=== PATIENT | female | born 1980 | race Caucasian/White ===

== ENCOUNTER 2018-04-30 01:43 | Emergency (ER) | payer OTHER, SELFPAY ==
[2018-04-30 01:44] VITALS: BP 122/81; PULSE 71; RESP 18; TEMP 36.6; O2SAT 100; BMI 27.6
--- NOTE | 2018-04-30 01:45 | ED.RN ---
PER THE COMPUTER, [facility] DOES NOT REQUIRE POST ACCIDENT DRUG TESTING.
--- NOTE | 2018-04-30 01:46 | ED.VISSUMM ---
- ER Visit Summary Date of Service: 04/30/18 Chief Complaint: Right second finger injury History of Present Illness: The patient is a 38 F who is right-hand dominant presents with injury to right second finger. Patient was at work. She was working on a [employer] press. She states that 1 of the pieces came back and struck on the dorsum of the right second finger. She denies other injury. She had pain and swelling. She denies any loss of function. The patient is otherwise healthy. Physical Examination: Exam is relatively unremarkable. There is contusion with superficial abrasion over the PIP dorsum of the right second finger. Flexion extension are preserved. 2 point determination is preserved. No evidence of nail injury. Test Results: [] Emergency Department Course and Treatment: X-rays were obtained of the finger. There is no evidence of acute fracture. I do feel her symptoms are secondary to contusion. Patient was placed in AlumaFoam splint for comfort. She will be allowed to return to work with restrictions on the right hand. She will continue ice, elevation, and anti-inflammatories. She will be discharged. Treatment Plan: [] Disposition: Discharge Impression: Right second finger contusion This note was generated with [employer] dictation software. It may contain incorrect words, spelling, and punctuation that were not noted in review of the chart prior to signing ED Disposition - Plan for ED Patient: Chief Complaint: Upper Extremity Injury Instructions: ED Sprain Finger Referrals: [facility]AH[facility] SWEENEY [GROUP OF PHYSICIANS] -
--- NOTE | 2018-04-30 01:50 | RAD_ITS ---
STUDY: X-RAY - RIGHT HAND REASON FOR EXAM: Female, 38 years old. Smashed hand in machinery. TECHNIQUE: 3 view(s) of the hand. COMPARISON: None. FINDINGS: Normal radiocarpal articulation. Normal distal radioulnar joint. Normal visualized carpal bones. Normal carpal articulations Normal carpometacarpal articulation of the thumb. Normal second through fifth carpometacarpal joints. Normal metacarpi. Normal metacarpophalangeal joint of the thumb. Normal interphalangeal joint of the thumb. Normal proximal and distal phalanges of the thumb. Normal metacarpophalangeal joints of the second through fifth fingers. Normal proximal and distal interphalangeal joints of the second through fifth fingers. Normal phalanges of the second through fifth fingers. The soft tissue structures are unremarkable. RAD/Hand Min 3 Views IMPRESSION: Normal x-ray examination of the hand. Electronically Signed: Darío Miramontes MD at 2:35 EDT , Service support ,
[2018-04-30] MEDS: Naproxen 500 MG Tablet PO (01:59)
[2018-04-30 02:20] VITALS: PULSE 80; RESP 18; O2SAT 98
== END 2018-04-30 02:23 | disposition home or self-care (01) ==
LOC: ED 02:04
PROVIDERS: Emergency Provider Emergency Medicine; Family Provider Family Medicine; PCP Family Medicine
DX: S60.021A Contusion of right index finger without damage to nail, initial encounter (principal); W31.89XA Contact with other specified machinery, initial encounter; Y93.9 Activity, unspecified; Y92.89 Other specified places as the place of occurrence of the external cause; Y99.0 Civilian activity done for income or pay; F32.9 Major depressive disorder, single episode, unspecified
CPT/HCPCS: 73130; 99283

== ENCOUNTER 2019-09-17 17:55 | Emergency (ER) | payer BC, SELFPAY ==
[2019-09-17 17:56] VITALS: BP 111/84; PULSE 96; RESP 17; TEMP 36.8; O2SAT 100; BMI 27.1
--- NOTE | 2019-09-17 18:06 | ED.DCSUM_ITS ---
History of Present Illness Chief Complaint: Foreign Body Informant: Patient Onset: Today Context: Gradual Onset Timing: Continuous Current Severity: Moderate Maximum Severity: Moderate Narrative: The patient presents to the emergency department with left ring finger pain. Patient was in her normal state of health. She states she was working on her car this morning. She suffered a small abrasion to her ring finger over the middle phalange on the palmar aspect. She states she bandaged it went to sleep. When she woke, it was more red and painful. She is concerned that she may be a retained foreign body. She is otherwise healthy. She is on no daily medications. She is right-hand dominant. Prior similar symptoms: No Recent Illness/Hospitalization: No Past Medical History - Allergies and Home Meds Allergies/Adverse Reactions: Allergies No Known Allergies Allergy (Verified 09/17/19 17:56) Primary Care Physician: Bhupendra Stout MD [Primary Care Provider] - Prior records reviewed: Yes Past Medical History: None Surgical History: no surgical history Smoking Status: Current every day smoker Review of Systems General: Denies: Chills, Fever, Sweats Eyes: Denies: Visual changes - bilaterally, Diplopia ENT: Denies: Rhinorrhea, Sore throat Cardiovascular: Denies: Chest pain, Palpitations Respiratory: Denies: Dyspnea, Cough, Dyspnea on exertion Gastrointestinal: Denies: Abdominal pain, Nausea, Vomiting, Diarrhea, Melena, Hematochezia Genitourinary: Denies: Dysuria, Hematuria, Frequency Musculoskeletal: Denies: Back pain, Extremity Pain Skin: Denies: Rash, Wounds Neurological: Denies: Headache, Weakness, Numbness Physical Exam Vital Signs/Narrative: Vital Signs Temp Pulse Resp BP Pulse Ox 09/17/19 17:56 98.3 F 96 17 111/84 H 100 Inital Vital Signs reviewed: Yes General: Well nourished, Well developed, No Acute Distress Head: Normocephalic, Atraumatic Eyes: Perrl, EOMI ENT: Moist mucous membranes, No rhinorrhea Neck: Supple, Nontender Cardiovascular: Regular rate, Regular rhythm, No murmurs Respiratory: No distress, CTA bilaterally, Chest nontender Abdomen: Soft, Nontender, Nondistended, Normal bowel sounds Back: Nontender, Normal Inspection Extremities: No edema, Tenderness - 1 cm abrasion on the palmar aspect of the left mid phalange he fourth finger. There is no streaking. There is no evidence of felon or paronychia. Full range of motion. No pain along the flexor sheath. Skin: Normal color, No rash Neurological: Alert, Oriented x3, Cranial nerves II-XII grossly intact, Normal Strength, Normal Sensation Psychological: Normal affect, Normal Mood Diagnostic/Tx/Re-eval Clinical Impression(s) from Imaging Studies Hand X-Ray 09/17/19 18:20 - Medical Decision Making The patient presents with superficial cellulitis of the finger. I did obtain x- rays. There is no evidence of retained foreign body. The patient's abrasion is very superficial. Her tetanus is updated. I do feel that she likely has a superficial wound infection. I have no suspicion for tenderness infection or deep puncture or foreign body. I will place the patient on Bactrim. She is counseled on local wound care and having this reevaluated within 48 hours if she cannot see her primary care to return to the emergency department. She is comfortable with this plan of care. Impression 1. Finger abrasion with cellulitis ED Disposition - Plan for ED Patient: Instructions: Cellulitis Prescriptions: Smz/Tmp Ds [Bactrim Ds] 1 tab PO BID #[id number] tab Prescription Printed Referrals: Bhupendra Stout MD [Primary Care Provider] -
--- NOTE | 2019-09-17 18:20 | RAD_ITS ---
STUDY: X-RAY - LEFT HAND REASON FOR EXAM: Female, 39 years old. Concern for metallic foreign body fourth digit. TECHNIQUE: 3 view(s) of the hand. COMPARISON: None. FINDINGS: No acute fracture, dislocation or osseous destruction. No significant joint space narrowing. No significant productive changes. No significant soft tissue swelling. IMPRESSION: No acute fracture or dislocation. No metallic foreign body identified. Electronically Signed: Abraham Eid, at 18:37 EST Tel , Service support , RAD/Hand Min 3 Views
== END 2019-09-17 18:49 | disposition home or self-care (01) ==
LOC: ED 18:19
PROVIDERS: Emergency Provider Emergency Medicine; Family Provider Family Medicine; PCP Family Medicine
DX: L03.012 Cellulitis of left finger (principal); F17.200 Nicotine dependence, unspecified, uncomplicated
CPT/HCPCS: 73130; 99283